=== PATIENT | female | born 1970 | race Caucasian/White ===

== ENCOUNTER 2017-11-23 14:30 | Inpatient (IN) | payer OTHER, SELFPAY ==
[2017-11-23 15:00] LABS: #Eosinphils 0.2 thou/uL (0.0-0.7); #Lymphocytes 1.7 thou/uL (1.20-3.40); #Monocytes 0.6 thou/uL (0.11-0.59); #Neutrophils 8.1 thou/uL (1.40-6.50); %Basophils 0.4 % (0.0-1.0); %Eosinophils 1.7 % (0.0-10.0); %Lymphocytes 15.6 % (21.0-51.0); %Monocytes 5.9 % (0.0-10.0); %Neutrophils 76.3 % (42.0-75.0); Hemoglobin 15.4 g/dL (12.0-16.0); Mean Corpuscular HGB CONC 34.9 g/dL (32.0-36.0); Mean Corpuscular Hemoglobin 31.8 pg (27.0-31.0); Mean Platelet Volume 6.8 fL (7.4-10.4); Platelet Count 316 thou/uL (130-400); Red Blood Cell (RBC) Count 4.83 mill/uL (4.20-5.40); White Blood Cell (WBC) Count 10.6 thou/uL (4.8-10.8)
[2017-11-23 15:23] LABS: ALT (SGPT) 11 U/L (8-55); AST (SGOT) 12 U/L (5-34); Albumin 4.3 g/dL (3.5-5.0); Alkaline Phosphatase 81 U/L (40-150); Anion Gap 13 mmol/L (10-20); BUN (Urea Nitrogen) 13 mg/dL (7.0-18.7); Bilirubin, Total 0.5 mg/dL (0.2-1.2); Calc. Creatinine Clearance 0 mL/min (70-130); Calcium 9.4 mg/dL (7.8-10.44); Carbon Dioxide 22 mmol/L (22-29); Chloride 106 mmol/L (98-107); Estimated GFR-MDRD 83; Globulin 3.2 g/dL (2.4-3.5); Glucose 110 mg/dL (70-105); Potassium 3.6 mmol/L (3.5-5.1); Protein, Total 7.5 g/dL (6.0-8.3); Sodium 137 mmol/L (136-145)
[2017-11-23 15:49] LABS: Bilirubin Negative (Negative); Blood, Urine Large (Negative); Clarity TURBID (Clear); Glucose, Urine (Dipstick) Negative (Negative); Leukocyte Large (Negative); Nitrite Positive (Negative); Protein, Urine (Dipstick) 100 mg/dL (Neg-Trace); Specific Gravity, Urine 1.018 (1.002-1.036); Urobilinogen 0.2 mg/dL (0.2-1.0); pH, Urine 5.5 (5.0-9.0)
[2017-11-23 15:51] LABS: Bacteria/HPF 4+ HPF (None Seen); Hyaline Casts/LPF 0-3 HYALINE CAST LPF (0-3 Hyaline); RBC/HPF GREATER THAN 50-TNTC HPF (0-3); Squamous Epithelial 0-3 HPF (0-3)
[2017-11-23 16:57] LABS: Pregnancy Test - Urine (BHCG) Negative (Negative); Pregu Control Background? CLEAR/WHITE (CLR/WHITE); Pregu Control Bar Appear? YES (CONTROL BAR); Specific Gravity 1.018 (1.002-1.036)
[2017-11-23] MEDS ORDERED: cefTRIAXone\\ROCEPHIN 1 GM VIAL ONE (17:18)
[2017-11-23] MEDS ORDERED: Morphine 4 MG/ML VIAL ONE (19:05)
[2017-11-23] MEDS ORDERED: Ketorolac Tromethamine 30 MG/ML VIAL ONE (19:06)
--- NOTE | 2017-11-23 19:39 | CT ---
CT ABDOMEN NONCONTRAST CT PELVIS NONCONTRAST: (urolithiasis protocol) DATE: 11/23/17 at 5:17 p.m. HISTORY: 47-year-old female with right flank pain. COMPARISON: 11/10/14. TECHNIQUE: IV injection of iodinated contrast media: none Oral contrast media: none FINDINGS: Other than for urolithiasis, the lack of IV and oral contrast limits the evaluation. 2 x 2.5 x 2.5 cm round left fatty adnexal mass at the pelvic inlet is unchanged since 11/10/14. No col onic diverticulitis. No appendicitis. No small bowel dilation. Within the limitations of a noncontras t scan, no major pathology identified involving the liver, spleen, abdominal aorta, adrenals, or panc reas. No hydroureter. No calculus in the urinary bladder or ureters. What were called dystrophic calc ifications were identified on the previous CT in the right kidney. Actually, those have moved, and th erefore they are more consistent with nephrolithiasis. Whereas cluster of calcifications were present in a right lower pole major calyx previously, this has apparently coalesced into what appears to be a single calculus which is now in the right renal pelvis but does not obstruct it. It measures approx imately 10 x 5.5 x 4 mm. There is mild dilation of the right renal pelvis and right calyces, new sinc e the previous CT. There are multiple tiny calculi 2 and 3 mm in size, in right renal upper, mid, and lower pole calyces. There is at least one 2 mm calculus at a left renal lower pole calyx, similar to previous CT. IMPRESSION: 1. Bilateral nephrolithiasis, with many more calculi in the right kidney than the left. 2. The largest calculus in the right kidney is 10 mm, and is in the right renal pelvis, although currently not lodged at the UPJ and therefore not causing a high grade obstruction. However, there i s mild right hydronephrosis, of uncertain etiology. 3. Left ovarian dermoid tumor is stable since 2014. ALEXA Beck POS: YANELIS
[2017-11-23] MEDS ORDERED: Ondansetron HCl/PF 4 MG/2 ML Vial IVP PRN (20:56)
[2017-11-23] MEDS ORDERED: Acetaminophen 325 MG TAB PO PRN (20:56)
[2017-11-23 22:31] VITALS: BMI 37.4
[2017-11-23] MEDS: Atorvastatin Calcium 40 MG TAB PO SCH (22:57)
[2017-11-23] MEDS: Metoprolol Tartrate 25 MG TAB PO SCH (22:57)
[2017-11-23] MEDS: Sodium Chloride 0.9% 1,000 ML IV SCH (23:12)
[2017-11-24 04:42] LABS: #Eosinphils 0.3 thou/uL (0.0-0.7); #Lymphocytes 1.8 thou/uL (1.20-3.40); #Monocytes 0.9 thou/uL (0.11-0.59); #Neutrophils 5.9 thou/uL (1.40-6.50); %Basophils 0.5 % (0.0-1.0); %Eosinophils 3.1 % (0.0-10.0); %Lymphocytes 20.5 % (21.0-51.0); %Monocytes 9.9 % (0.0-10.0); Hemoglobin 12.8 g/dL (12.0-16.0); Mean Corpuscular HGB CONC 34.6 g/dL (32.0-36.0); Mean Corpuscular Hemoglobin 31.8 pg (27.0-31.0); Mean Corpuscular Volume 91.9 fL (78.0-98.0); Mean Platelet Volume 7.3 fL (7.4-10.4); Platelet Count 282 thou/uL (130-400); Red Blood Cell (RBC) Count 4.01 mill/uL (4.20-5.40); White Blood Cell (WBC) Count 8.9 thou/uL (4.8-10.8)
[2017-11-24 05:16] LABS: Anion Gap 13 mmol/L (10-20); BUN (Urea Nitrogen) 18 mg/dL (7.0-18.7); Calc. Creatinine Clearance 155 mL/min (70-130); Calcium 8.4 mg/dL (7.8-10.44); Carbon Dioxide 19 mmol/L (22-29); Chloride 109 mmol/L (98-107); Estimated GFR-MDRD 89; Glucose 96 mg/dL (70-105); Sodium 137 mmol/L (136-145)
[2017-11-24] MEDS: Sodium Chloride 0.9% 1,000 ML IV SCH ×2 (06:17→08:31)
--- NOTE | 2017-11-24 06:24 | HP ---
PRIMARY CARE PHYSICIAN: The patient has no PCP. CODE STATUS: FULL CODE. TIME OF EVALUATION: 08:55 p.m. CHIEF COMPLAINT: Right flank pain. HISTORY OF PRESENT ILLNESS: This is a 47-year-old female patient with past medical history of multip le kidney stones in the past, status post surgery due to kidney stones, also has a history of reporte dly cardiac catheterization x2 with no stents, high cholesterol, came to the hospital after having se warren right-sided flank pain radiating to the anterior lower abdomen, with no clear triggers, no allev iating factors. No associated fever or chills. The patient did have some nausea and vomiting associ ated. REVIEW OF SYSTEMS: Constitutional: No fever, chills, or generalized weakness. Respiratory: No cou gh, sputum production or shortness of breath. Cardiovascular: No chest pain, palpitations, or short ness of breath. Gastrointestinal: The patient had nausea. No vomiting, diarrhea or abdominal pain. SALVAGE MECHANIC: No dizziness, headache or feeling lightheaded. Genitourinary: Right flank pain. Extremitie s: No leg swelling. All other systems were reviewed and negative except for the findings mentioned above. PAST MEDICAL HISTORY: Reported in the HPI. SOCIAL HISTORY: The patient smokes cigarettes, smoked for 20 years. PSYCHIATRIC HISTORY: No previous psychiatric history. PAST SURGICAL HISTORY: Kidney stones, has been removed in the past; cardiac catheterization x2; tons illectomy; tubal ligation. ALLERGIES: No known drug allergies. REPORTED MEDICATIONS: None. PHYSICAL EXAMINATION: VITAL SIGNS: Blood pressure 114/79 with heart rate 111, respiratory rate was 18, temperature 98.7, p ain was 10/10, oxygen saturation 98% on room air. GENERAL APPEARANCE: The patient is alert, oriented, not in any acute distress. HEENT: Eyes: Normal conjunctivae. Moist oral mucosa. Anicteric. NECK: No JVD. RESPIRATORY: Bilateral air entry. No rales, no wheezing. Symmetric expansion. CARDIOVASCULAR: Normal rate, regular rhythm. No murmurs, no gallop. No edema. ABDOMEN: Soft, normal bowel sounds. MUSCULOSKELETAL: Baseline range of motion and strength. No tenderness. SKIN: Warm and intact. No pallor, no rash, no redness. Peripheral pulses are present. Capillary re fill seems to be intact. NEUROLOGIC: Baseline sensory. No evidence of any new focal weakness. Baseline speech. Cranial ner ves seem to be intact. GENITOURINARY: The patient has right flank pain. PSYCHIATRIC: The patient is in good mood. No anxiety, oriented, optimal judgment. IMAGING: EKG was reviewed. The patient has normal sinus rhythm at the rate of 72, MN 160, QRS 76, Q T corrected 468, prolonged QT, nonspecific T-wave abnormalities. Abdomen and pelvis CT was reviewed. The patient has bilateral nephrolithiasis with minimal calculi in the right kidney other than left, the largest calculus in the right kidney is 10 mm right renal pelvis high-grade obstruct ion; however, there is mild hydronephrosis of uncertain etiology, left ovarian dermoid tumor is stabl e since 2015. LABORATORY DATA: Labs were reviewed. White count 10.6, hemoglobin 15.4, MCV 91, platelet count 316. Sodium 137, potassium 3.6, chloride 106, carbon dioxide 22, anion gap 13, BUN 13, creatinine 0.75, GFR 83, glucose 110. LFTs were negative. Urine was done. The patient has numerous rbc's and white blood counts. ASSESSMENT AND PLAN: The patient will be placed in the hospital with the following medical problems: 1. Urinary tract infection. The patient has been started on antibiotics. We will follow cultures, adjust antibiotics as per sensitivity. 2. Right flank pain, that is severe, needing pain medications for optimal control, this places the p atient at high risk of complication from treatment. 3. Multiple right kidney and left kidney calculi, Urology has been consulted, we will follow recomme ndations. There is mild hydronephrosis on the right side. 4. History of hyperlipidemia, low cholesterol diet is advised, reconcile home medications. 5. History of coronary artery disease, no previous stent, we will reconcile home medications. 6. Deep venous thrombosis prophylaxis.
[2017-11-24] MEDS: Metoprolol Tartrate 25 MG TAB PO SCH ×2 (07:20→20:34)
--- NOTE | 2017-11-24 10:40 | PDOC.FM ---
- Subjective Subjective: This morning patient states she is still having R CVA pain but it is well- controlled with PRN Morphine. She states she is still able to urinate, no blood in the urine, feels like she is not quite empty her bladder. She states she has some pressure when urinating. She has had stones 1 time before in about 2013 per her report. She denies chest pain, sob, headache, or leg pain. - Objective MAR Reviewed: Yes Vital Signs & Weight: Vital Signs (12 hours) Temp Pulse Resp BP BP Pulse Ox 11/24/17 07:15 98.0 F 62 16 129/75 97 11/24/17 03:46 97.5 F L 63 16 117/75 97 Weight Weight 98.883 kg I&O: 11/23/17 11/24/17 11/25/17 06:59 06:59 06:59 Intake Total 1500 Output Total 450 Balance 1050 Result Diagrams: 11/24/17 04:08 11/24/17 04:08 <Arvin Banegas - Last Filed: 11/24/17 10:44> - Objective Vital Signs & Weight: Vital Signs (12 hours) Temp Pulse Resp BP Pulse Ox 11/24/17 19:29 98.9 F 71 16 125/84 94 L 11/24/17 14:00 97.9 F 61 16 147/68 H 100 Weight Weight 98.883 kg I&O: 11/23/17 11/24/17 11/25/17 06:59 06:59 06:59 Intake Total 1500 2175 Output Total 450 600 Balance 1050 1575 Result Diagrams: 11/24/17 04:08 11/24/17 04:08 <Mariela Ya - Last Filed: 11/24/17 21:09> Phys Exam - Physical Examination Constitutional: NAD HEENT: PERRLA, moist MMs Neck: no nodes Respiratory: no wheezing, clear to auscultation bilateral Cardiovascular: RRR, no significant murmur Gastrointestinal: soft, non-tender, no distention, positive bowel sounds CVA tenderness on the right Musculoskeletal: no edema, pulses present Neurological: non-focal, moves all 4 limbs Lymphatic: no nodes Psychiatric: normal affect <Arvin Banegas - Last Filed: 11/24/17 10:44> Dx/Plan (1) Nephrolithiasis Status: Acute (2) History of coronary artery disease Code(s): Z86.79 - PERSONAL HISTORY OF OTHER DISEASES OF THE CIRCULATORY SYSTEM Status: Acute (3) Hyperlipidemia Code(s): E78.5 - HYPERLIPIDEMIA, UNSPECIFIED Status: Acute (4) Hypertension Code(s): I10 - ESSENTIAL (PRIMARY) HYPERTENSION Status: Acute - Plan Plan: # Hydronephrosis 2/2 Nephrolithiasis - Cytoscopy with Urology today, appreciate Urology recs - mild hydronephrosis on R, non-obstructed, multiple stone, largest 10mm - states she has had one stone in the past, 2013 - consider alpha-martha, will defer to uro recs - discussed increasing fluid intake upon d/c - anticipate thiazide on d/c - Morphine PRN for pain - serum calcium 8.4 # UTI - rocephin - urine culture grew gram (-) jonah, sensitivities pending # Dermoid ovarian tumor - stable since [address] # Hx of CAD - cath x2, no stends # HLD - atorvastatin # HTN - on metoprolol now - will discuss switch to HCTZ upon d/c as this can decrease risk of Calcium stones # Home meds - patient told admitting provider she had no home meds - unable to rec with patient this AM as she was taken for surgery, will f/u on this Code: full Fluids: NS Diet: NPO prior to surgery Dispo: 1-2 days <Arvin Banegas - Last Filed: 11/24/17 10:44> Attending Addendum - Attending Addendum Date/Time: 11/24/172107 I personally evaluated the patient at 1545 and discussed the management with Dr. Banegas I agree with the History, Examination, Assessment and Plan documented above with any addition or exceptions noted below. R nephrolithiasis with E coli UTI- ureteral stent placed by urology- appreciate recs. Continue IVF, pain meds, IV Rocephin. <Mariela Ya - Last Filed: 11/24/17 21:09>
[2017-11-24] MEDS ORDERED: Levofloxacin 500 mg/D5W 100 ml Premix Bag ONE (11:29)
[2017-11-24] MEDS ORDERED: Fentanyl 100 MCG/2 ML VIAL ONE ×2 (11:34→12:41)
[2017-11-24] MEDS ORDERED: Iothalamate Meglumine 60% 50 ML VIAL FS ONE (12:33)
[2017-11-24] MEDS ORDERED: Bisacodyl 10 MG SUPP PR PRN (13:18)
[2017-11-24] MEDS ORDERED: HYDROcodone/Acetaminophen 7.5/325 mg Tablet PO PRN (13:18)
[2017-11-24] MEDS ORDERED: Phenazopyridine HCl 97.5 MG TABLET PO PRN (13:21)
--- NOTE | 2017-11-24 13:35 | OP ---
PREOPERATIVE DIAGNOSES: 1. Right flank pain. 2. Gram-negative urinary tract infection. 3. Right renal pelvic stone 10 mm, multiple right punctate renal calculi, left punctate renal calcul i. 4. Mild right hydronephrosis. Left ovarian dermoid tumor, stable since [address] POSTOPERATIVE DIAGNOSES: 1. Right flank pain. 2. Gram-negative urinary tract infection. 3. Right renal pelvic stone 10 mm, multiple right punctate renal calculi, left punctate renal calcul i. 4. Mild right hydronephrosis. Left ovarian dermoid tumor, stable since [address] PROCEDURE PERFORMED: Cystoscopy, right 6 x 24 double-J ureteral stent placement. SURGEON: Luciana Archibald D.O. ANESTHESIA: LMA. COMPLICATIONS: None apparent. DISPOSITION: To recovery room in stable condition. INDICATIONS FOR PROCEDURE AND HISTORY: Ms. Jenkins is a 47-year-old morbidly obese female with history of ongoing tobacco abuse, coronary artery disease, with history of large renal pelvic stone, status post PCNL, staged ureteroscopy, laser lithotripsy in 2013. She has subsequently failed to follow up. She states that due to lack of insurance, unable to follow up with her physicians including a [facility] ologist. She continues to smoke. She presented to the emergency room due to right flank pain, UA de monstrates UTI, preliminary gram negative jonah. She has been on Rocephin, with no significant fever, no significant leukocytosis. Due to presenting mild hydronephrosis, large right renal pelvic stone, UTI, she presents for cystoscopy, right stent. Indications reviewed. Risks and complications includ ing bleeding, pain, infection, urosepsis was reviewed. She has been fully informed regarding staged treatment at a later date when UTI resolved. DESCRIPTION OF THE PROCEDURE: After an informed consent is signed, the patient is taken to the opera tin room, placed in a dorsal lithotomy position with the genital area prepped and draped in the usua l surgical sterile fashion. Broad-spectrum antibiotics were provided. A 21 Vincentian cystoscope was ut ilized for cystoscopy. Upon entering the bladder, there was no bladder stone seen. The right UO was intubated with an open-ended catheter and a 0.35 sensor wire was passed into the right upper pole wi thout difficulty. Radiopaque stone was seen on fluoroscopy. A 6 x 24 double-J ureteral stent was pa ssed without difficulty. Distal tail was left in situ. Bladder was completely emptied and she jenn ated the procedure well. She was transported to the recovery room and will be monitored until urine culture finalizes. It would be prudent to obtain Cardiology evaluation, as she has not seen a cardio logist for 3-4 years and has history of coronary artery disease, noncompliant with her cardiac medica tion. Her blood pressure on this admission is stable. Anticipate discharge when urine culture final ized with appropriate antibiotic regimen.
--- NOTE | 2017-11-24 14:09 | CON ---
DATE OF CONSULTATION: 11/24/2017 REASON FOR CONSULT: Right renal calculi, UTI. PRIMARY CARE PHYSICIAN: Jennifer Brock M.D. HISTORY OF PRESENT ILLNESS: Ms. Jenkins is a 47-year-old female last seen 2014. She presented for treatment of her large right renal pelvic stone, in which prior CT in 10/2012 demonstrated a 2.4cm x 11 mm stone with Hounsfield unit 1100 , and a second stone in the lower pole of the right kidney, 8-9 mm. She does have a history of left lower pole punctate renal lithiasis. Incidentally on the CT scan is a history of left ovarian dermoid. She underwent staged percutaneous nephrolithotomy, ureteroscopy back in 07/2013. Subsequent CT demonstrated residual stone nidus extrarenal on observation, and also a linear calcific density 9mm in the right kidney which appeared to be embedded on URS was on surveillance. I did inform the patient regarding importance of subsequent followup and surveillance; however, she had failed to follow up. She relates that she since I have seen her has ran out of insurance, has not been taking her blood pressure medication as well. She does relate history of aspirin use. She presented to the emergency room due to flank pain which began on Sunday. Urinalysis is suspicious for UTI currently, preliminary urine culture demonstrating gram negative jonah. She is hemodynamically stable and denies fever, chills, nausea, vomiting. CT demonstrates right renal pelvic stone now within the collecting system, also there are punctate right kidney stones approximately 3 in number and left punctate renal lithiasis. Advised regarding cystoscopy, right stent and elective treatment of her right renal pelvic stone at a later date. She desires to proceed. The patient is informed that she has not seen a revit drafter for few years. She continues to smoke. PAST MEDICAL HISTORY: Include hypertension, coronary artery disease, previous cardiac clearance by Dr. Perez in 05/2013. PAST SURGICAL HISTORY: T&A, tubal ligation, cardiac catheterization in 01/2012 demonstrating mild to moderate coronary artery disease on medical management. 06/23/2013, right percutaneous nephrolithotomy, laser lithotripsy of right renal pelvic stone, catheterization of the right ureter. 06/27/2013, cystoscopy, right retrograde 6 x 24 stent and nephrostomy tube removal. 08/04/2013, cystoscopy, bilateral retrograde, right ureteroscopy, pyeloscopy, basket extraction of right distal ureteral calculi x3 laser lithotripsy of right mid pole and lower pole renal calculi, extraction of stone. ALLERGIES: CEPHALEXIN. No prior allergic history per our clinical notes Currently, she is on Rocephin, which she is tolerating uneventfully. The patient currently present with her . PHYSICAL EXAMINATION: VITAL SIGNS: Stable 97, 129/75, 450 of urine output. GENERAL: The patient appears to be in no acute distress. Denies chest pain, shortness of breath. No nausea, vomiting or fever. HEENT: Grossly unremarkable. HEART: Regular rate. LUNGS: Clear. ABDOMEN: Morbidly obese, protuberant, no rigidity, no rebound. EXTREMITIES: No cyanosis, clubbing or edema. GENITOURINARY: Deferred at this time as that we performed a cystoscopy this morning. PERTINENT LABS AND IMAGING: She presented with a white count of 10. Currently , this morning is 8.9, hemoglobin 12, platelet 282. Creatinine stable at 0.7, calcium within normal limits. Urinalysis demonstrates 100 protein, large leukocytes, positive nitrites, 4+ bacteria, no epithelials, greater than 50 WBCs , RBCs. Urine culture preliminary growing gram negative jonah. CT demonstrates a right 9-10 mm stone in the renal pelvis, right punctate renal lithiasis x3, left lower pole punctate renal lithiasis. IMPRESSION AND PLAN: 1. Ms. Jenkins is a 47-year-old female with history of coronary artery disease with recurrent kidney stones, prior history of right PCNL stage ureteroscopy, laser lithotripsy presents with urinary tract infection, right renal pelvic stone, recommend cystoscopy, stent placement. 2. Noncompliance due to lack of insurance. 3. History of coronary artery disease followed by Dr. Peerz. 4. Tobacco abuse with history of cardiac catheterization 10/16/2017 with normal EF. 5. History of intermittent chest pain. We will proceed with cystoscopy stent. EKG, chest x-rays to be obtained. Cardiology consultation advised as she will need to return to the OR for ureteroscopy, laser lithotripsy, possible staged intervention given stone size. 6. Await urine culture. [facility]
[2017-11-24] MEDS: Oxybutynin 5 MG TAB PO PRN (14:16)
--- NOTE | 2017-11-24 14:48 | RAD ---
IVP RETROGRADE EVALUATION; Date: 11/24/17 INDICATION: Stent placement. COMPARISON: CT of abdomen and pelvis dated 11/23/17. FINDINGS: Submitted images demonstrate placement of a right ureteral stent. Large calculus within the right mir al pelvis is unchanged in position from the comparison CT. IMPRESSION: Interval placement of right ureteral stent. The stent projects in the expected position. POS: SAM
[2017-11-24] MEDS ORDERED: Dexamethasone 20 MG/5 ML VIAL ONE (15:02)
[2017-11-24] MEDS ORDERED: Succinylcholine Chloride 20 MG/ML 10 ml SYRINGE FS ONE (15:02)
[2017-11-24] MEDS ORDERED: Ondansetron HCl/PF 4 MG/2 ML Vial ONE (15:02)
[2017-11-24] MEDS ORDERED: Lidocaine 1% PF 5 ML VIAL ONE (15:02)
[2017-11-24] MEDS ORDERED: PROPOFOL 200 MG/20 ML VIAL ONE (15:02)
[2017-11-24] MEDS: HYDROcodone/Acetaminophen 7.5/325 mg Tablet PO PRN ×2 (16:14→20:34)
[2017-11-24] MEDS: Docusate 100 MG CAP PO PRN (20:33)
[2017-11-24] MEDS: Atorvastatin Calcium 40 MG TAB PO SCH (20:34)
[2017-11-24] MEDS ORDERED: Docusate 100 MG CAP PO SCH (21:00)
[2017-11-24] MEDS ORDERED: cefTRIAXone\\ROCEPHIN 1 GM in Sodium Chloride 0.9% 100 ML IVPB SCH (21:00)
[2017-11-25] MEDS: Sodium Chloride 0.9% 1,000 ML IV SCH (04:55)
[2017-11-25] MEDS: Oxybutynin 5 MG TAB PO PRN (06:30)
--- NOTE | 2017-11-25 07:30 | PDOC.FM ---
Addendum entered and electronically signed by Arvin Banegas MD 11/25/17 07:36: Dispo: likely d/c today pending pain control, cardiology recs EKG ordered Original Note: - Subjective Subjective: This morning patient states she is feeling well overall. She states her pain is controlled as long as she keeps on top of asking for norco. She was able to eat and drink last night without difficulty. Still having some urinary hesitation. No pressure, burning, or blood with urination. - Objective MAR Reviewed: Yes Vital Signs & Weight: Vital Signs (12 hours) Temp Pulse Resp BP Pulse Ox 11/25/17 04:00 97.8 F 52 L 17 115/77 97 11/25/17 00:11 97.6 F 62 18 110/76 96 11/24/17 20:34 98.9 F 71 16 Weight Weight 98.883 kg I&O: 11/24/17 11/25/17 11/26/17 06:59 06:59 06:59 Intake Total 1500 2175 Output Total 450 600 Balance 1050 1575 Result Diagrams: 11/24/17 04:08 11/24/17 04:08 <Arvin Banegas - Last Filed: 11/25/17 07:29> - Objective Vital Signs & Weight: Vital Signs (12 hours) Temp Pulse Resp BP Pulse Ox 11/25/17 08:35 98.7 F 54 L 16 96 11/25/17 07:59 98.7 F 54 L 16 152/92 H 96 11/25/17 04:00 97.8 F 52 L 17 115/77 97 11/25/17 00:11 97.6 F 62 18 110/76 96 Weight Weight 98.883 kg I&O: 11/24/17 11/25/17 11/26/17 06:59 06:59 06:59 Intake Total 1500 2175 Output Total 450 600 Balance 1050 1575 Result Diagrams: 11/24/17 04:08 11/24/17 04:08 <Mariela Ya - Last Filed: 11/25/17 11:33> Phys Exam - Physical Examination Constitutional: NAD HEENT: PERRLA, moist MMs Neck: no nodes Respiratory: no wheezing, clear to auscultation bilateral Cardiovascular: RRR, no significant murmur Gastrointestinal: soft, non-tender, no distention, positive bowel sounds CVA tenderness on R, mild, improved from yesterday Musculoskeletal: no edema, pulses present Neurological: non-focal, moves all 4 limbs Psychiatric: normal affect Skin: no rash, cap refill <2 seconds <Arvin Banegas - Last Filed: 11/25/17 07:29> Dx/Plan (1) Nephrolithiasis Status: Acute (2) History of coronary artery disease Code(s): Z86.79 - PERSONAL HISTORY OF OTHER DISEASES OF THE CIRCULATORY SYSTEM Status: Acute (3) Hyperlipidemia Code(s): E78.5 - HYPERLIPIDEMIA, UNSPECIFIED Status: Acute (4) Hypertension Code(s): I10 - ESSENTIAL (PRIMARY) HYPERTENSION Status: Acute - Plan Plan: # Hydronephrosis 2/2 Nephrolithiasis - Cytoscopy w/ stent placement 11/24 - mild hydronephrosis on R, non-obstructed, multiple stone, largest 10mm - states she has had one stone in the past, 2013 - thiazide to be continued on d/c - Morphine PRN for pain - serum calcium 8.4 # UTI - hirsch-sensitive e. coli # Dermoid ovarian tumor - stable since [address] # Hx of CAD - cath x2, no stents # HLD - atorvastatin # HTN - on metoprolol now, held 2/2 bradycardia - HCTZ # Bradycardia - bradycardic in 50s this AM, not symptomatic - hold metoprolol # No insurance - discussed financial assistance program [facility] physicians - patient should qualify to be seen w/o charge - case mgmt consulted Code: full Fluids: NS Diet: NPO prior to surgery Dispo: 1-2 days <Arvin Baneags - Last Filed: 11/25/17 07:29> Attending Addendum - Attending Addendum Date/Time: 11/25/17 1128 I personally evaluated the patient at 1015 am and discussed the management with Dr. Banegas I agree with the History, Examination, Assessment and Plan documented above with any addition or exceptions noted below. E coli UTI and R nephrolithiasis s/p R ureteral stent placement. patient is stable for d/c home on po amoxicillin and f/u with urology as outpatient. Will get outpatient cardiac clearance. <Mariela Ya - Last Filed: 11/25/17 11:33>
[2017-11-25] MEDS: Docusate 100 MG CAP PO PRN (08:36)
[2017-11-25] MEDS ORDERED: Hydrochlorothiazide 25 MG TAB PO SCH (09:00)
[2017-11-25] MEDS ORDERED: Ibuprofen 800 MG TAB PO PRN (11:40)
--- NOTE | 2017-11-25 11:40 | PDOC.EVN ---
Event Note - Event Note Event Note: Patient is Category IIb per 2014 AHA cardiovascular perioperative risk calculator Non-emergent surgery No active acute coronary syndrome -referred to cardiology for outpatient evaluation, has had 2 caths with no stents in the past 4-10 METs Category IIb, proceed with intermediate-high risk surgery per 2014 AHA cardiovascular perioperative risk calculator.
[2017-11-25] MEDS ORDERED: HYDROcodone/Acetaminophen 7.5/325 mg Tablet PO PRN (12:07)
[2017-11-25 12:16] VITALS: BP 141/80; TEMP 97.9
[2017-11-25] MEDS ORDERED: HYDROcodone/Acetaminophen 5/325 mg Tablet PO PRN ×2 (12:42)
--- NOTE | 2017-11-25 13:37 | PRG ---
DATE OF SERVICE: 11/25/2017 SUBJECTIVE: The patient feeling okay, Hauula was discontinued by primary service; previously, her susie n was adequately controlled with Hauula p.r.n. Denies nausea, vomiting, or fever. OBJECTIVE: VITAL SIGNS: Stable. She is afebrile. ABDOMEN: Soft, nontender, nondistended. No CVA tenderness appreciated. LABORATORY DATA: No recent labs. Her urine culture did finalize demonstrating E. coli resistant to quinolones, sensitive to cephalosporins, Bactrim, and Macrobid. IMPRESSION AND PLAN: Ms. Jenkins is a 47-year-old female with history of tobacco abuse, coronary arter y disease, history of recurrent kidney stone, prior history of large right renal pelvic stone, status post stage PCNL, ureteroscopy. 1. Current admission due to progression of previous surveyed renal pelvic stone, now measuring 10 mm with multiple right punctate renal lithiasis. Postoperative day #1, status post cystoscopy, right s tent. She is clinically stable to be discharged. I have provided her with Bactrim DS 1 p.o. b.i.d. for 14 days, Hauula 5/325 one to two p.o. q.6-8 hours p.r.n. #40, Colace, Azo, oxybutynin 5 mg 1 p.o. q.8 hours bladder spasm. She has a close followup with me this Sunday to undergo preoperative sched uling. We will obtain a recheck urinalysis and culture in a week to 2 intervals. When urine culture negative, we will proceed with surgical intervention, most likely right ureteroscopy, laser lithotri psy. She has been fully informed regarding likely of her stage and intervention given stone size, mo iety. She would prefer outpatient surgery versus PCNL. As the stone measures 10 mm, I am okay to pr oceed with ureteroscopy and is likely stage manner. 2. History of coronary artery disease with medical noncompliance due to lack of insurance. I did we nt by her case with Dr. Freire this morning. He will write a separate cardiac clearance to proceed w ith surgical intervention in about 2 weeks, as the patient will require general anesthesia for approx imately 2-hour interval given the size of the stone. Verbally, per Dr. Freire, she will most likely be cleared to be off her aspirin. Prescription is in chart. The patient to be discharged after her Cardiology consultation.
--- NOTE | 2017-11-25 15:47 | CON ---
DATE OF CONSULTATION: 11/25/2017 REASON FOR CONSULTATION: Preoperative evaluation. PRIMARY LITHOPRESS OPERATOR: Girma Perez M.D. HISTORY OF PRESENT ILLNESS: Ms. Jenkins is a very pleasant 47-year-old white female who comes to the [facility] for a urethral stone. She was seen by Dr. Archibald and eventually had a stent placed and I am being called to do a preoperative evaluation for removal of the stent 2 weeks from now. She has been on full dose aspirin 325. She has had a history of multiple admissions for chest pain to the [facility]. She has had negative stress in the past back in 2013. She had a heart catheterization for continued episodes of chest pain despite having a normal stress test, so she was found to have no sig nificant coronary artery disease. Her EF was normal at that time. She was recommended to stop tobac co and was started on a baby aspirin and she is taking fish oil at home as well. She denies any chest pain, tightness, or pressure. PAST MEDICAL HISTORY: 1. Multiple kidney stones in the past. 2. Hyperlipidemia. 3. Chronic chest pain, but no significant coronary artery disease. SOCIAL HISTORY: He continues to smoke. No alcohol, drug use. PAST SURGICAL HISTORY: 1. Kidney stone removal in the past. 2. Cardiac catheterization as above. 3. Tonsillectomy. 4. Tubal ligation. OUTPATIENT MEDICATIONS: None. ALLERGIES: No known drug allergies. REVIEW OF SYSTEMS: Twelve point review of systems was done and is all negative unless stated in the history of present illness. FAMILY HISTORY: Noncontributory. PHYSICAL EXAMINATION: VITAL SIGNS: Temperature 97.9, pulse 54, respiration rate 12, satting 96% on room air, blood pressur e 141/80. GENERAL: Awake, alert, oriented x3, in no distress. HEENT: Normocephalic, atraumatic. NECK: Supple. LUNGS: Clear. CARDIOVASCULAR: S1, S2, no S3, S4, no murmurs. ABDOMEN: Soft, positive bowel sounds. EXTREMITIES: No edema. SKIN: Warm and dry. LABORATORY WORK: Reviewed. CBC, chemistry and UA were reviewed. Urine test was negative. ASSESSMENT: 1. Preoperative evaluation. 2. Chronic chest pain, none recently with a normal catheterization in the past. PLAN: 1. She is low risk for a low to intermediate risk procedure. He may proceed with this procedure aaron yancey understood . She may stop her aspirin completely before the surgery and then restart whenever it is safe from the surgical perspective. No further testing is required before surgery. 2. Advised on tobacco cessation. 3. Follow up with Dr. Perez in the clinic in 1-2 months. Thank you for letting us participate in the care of your patient. We will sign off. Please call aaron yancey any questions.
--- NOTE | 2017-11-26 10:40 | DIS-2 ---
DATE OF ADMISSION: 11/23/2017 DATE OF DISCHARGE: 11/26/2017 RESIDENT: Dr. Arvin Banegas. ADMITTING ATTENDING: Ezra Lopes M.D. DISCHARGE ATTENDING: Dr. Mariela Ya. CONSULTATIONS: Urology and Cardiology. PROCEDURES: Cystoscopy with urethral stent. PRIMARY DIAGNOSIS: Nephrolithiasis. SECONDARY DIAGNOSES: Hydronephrosis, urinary tract infection, dermoid ovarian tumor, history of almaz nary artery disease, hyperlipidemia, hypertension, cardiovascular perioperative evaluation. DISCHARGE MEDICATIONS: Atorvastatin 80, hydrochlorothiazide 25, ibuprofen 800, oxybutynin 5, hydroco done, Bactrim b.i.d., Azo, aspirin. DISCONTINUED MEDICATIONS: None. HISTORY OF PRESENT ILLNESS AND HOSPITAL COURSE: This is a 47-year-old female, who presented to the [facility], [place] with a past medical history of kidney stones in the past. She had severe right-sided flank pain ra diating to lower abdomen. No associated fever or chills. Patient did have nausea and vomiting. Thi s is going on for about one day prior to admission. The patient had CT abdomen and pelvis, which showed stable dermoid ovarian tumor from 2014. CT also showed multiple renal-pelvic stones, largest being 10 mm on the right side with mild hydronephrosis o n the right side. She had a cystoscopy with right-sided stent placement. She will have followup wit clinic in Neurology on 11/27. Urinalysis and culture will be rechecked in 2 weeks. When urine cul ture is negative, they will have a right ureteroscopy and laser lithotripsy. Because of her history of coronary artery disease with medical noncompliance due to lack of insurance, Dr. Freire was consul rafa for perioperative evaluation. She was cleared for this [id number] risk surgery by [facility]. She may stop her aspirin before the surgery and restart when it is safe from a surgical persp ective. DISPOSITION: Stable. DISCHARGE INSTRUCTIONS: 1. Location: Home. 2. Diet: Regular. 3. Activity: As tolerated. 4. Followup: With Dr. Archibald in clinic on 11/27, Dr. Perez in 7 days as able, Dr. Brock in 7 days. 5. Encouraged the patient to increase fluid intake.
--- NOTE | 2017-11-26 10:49 | EKG ---
Test Reason : Blood Pressure : / mmHG Vent. Rate : 041 BPM Atrial Rate : 041 BPM P-R Int : 144 ms QRS Dur : 082 ms QT Int : 494 ms P-R-T Axes : 022 025 -04 degrees QTc Int : 407 ms Marked sinus bradycardia Abnormal ECG When compared with ECG of 11-AUG-2016 03:21, Vent. rate has decreased BY [address] no longer depressed in Anterior leads T wave inversion less evident in Inferior leads T wave inversion no longer evident in Anterolateral leads QT has shortened Confirmed by DR. Marion DE SANTIAGO ([id number]), television news video editor [address]MAN[address] ([id number]) on 11/26/2017 10:49:14 AM Referred By: JOHN Confirmed By:DR. Marion D ESANTIAGO
== END 2017-11-25 14:01 | disposition home or self-care (01) | DRG 694 ==
LOC: ERS 14:30 → SURG B 20:00
PROVIDERS: ADMIT Hospitalist; ATTEND Hospitalist
PROC: 0T768DZ Dilation of Right Ureter with Intraluminal Device, Via Natural or Artificial Opening Endoscopic (ICD-10-PCS; principal; 2017-11-24)
PROC: BT1D1ZZ Fluoroscopy of Right Kidney, Ureter and Bladder using Low Osmolar Contrast (ICD-10-PCS; 2017-11-24)
DX: N13.2 Hydronephrosis with renal and ureteral calculous obstruction (principal); N39.0 Urinary tract infection, site not specified; E78.5 Hyperlipidemia, unspecified; I25.10 Atherosclerotic heart disease of native coronary artery without angina pectoris; Z91.14 Patient's other noncompliance with medication regimen; B96.89 Other specified bacterial agents as the cause of diseases classified elsewhere
CPT/HCPCS: 36415; 36416; 74176; 74420; 80048; 80053; 81003; 81015; 81025; 85025; 87077; 87086; 87186; 93005; 93010; 96361; 96365; 96367; 96375; C1758; C1769; J0696; J1100; J1885; J1956; J2001; J2270; J2405; J2704; J3010; J7050; Q9961

== ENCOUNTER 2017-12-12 06:09 | Day surgery (SDC) | payer SELFPAY ==
[2017-11-29 15:00] VITALS: BMI 37.8
[2017-12-12] MEDS ORDERED: Piperacillin/Tazobactam 3.375 GM in Sodium Chloride 0.9% 100 ML IVPB SCH (06:45)
[2017-12-12] MEDS ORDERED: Iothalamate Meglumine 60% 50 ML VIAL FS ONE (07:07)
[2017-12-12] MEDS ORDERED: Fentanyl 100 MCG/2 ML VIAL ONE ×2 (07:23→09:14)
[2017-12-12] MEDS ORDERED: Midazolam HCl 2 mg/2 ml Vial ONE (07:23)
--- NOTE | 2017-12-12 08:30 | RAD ---
ONE VIEW ABDOMEN: COMPARISON: 01/04/2015 FINDINGS: There is a double-J right ureteral stent. Positioning appears to be appropriate. There is a 1 cm ca lcification projecting along the proximal right ureteral stent. Nonspecific bowel gas pattern. Phle boliths in the left hemipelvis are noted. IMPRESSION: A 1 cm calculus along the proximal right ureteral stent. POS: [facility]ANELIS
[2017-12-12] MEDS ORDERED: SUGAMMADEX SODIUM 200 MG/2 ML VIAL ONE (08:51)
[2017-12-12] MEDS ORDERED: Promethazine HCl 25 MG/ML VIAL ONE ×2 (09:00→09:57)
[2017-12-12] MEDS ORDERED: PHENYLEPHRINE-NS 100 MCG/ML 10 ML SYRINGE ONE (09:12)
[2017-12-12] MEDS ORDERED: PROPOFOL 200 MG/20 ML VIAL ONE (09:12)
[2017-12-12] MEDS ORDERED: Lidocaine 1% PF 5 ML VIAL ONE (09:12)
[2017-12-12] MEDS ORDERED: Ondansetron HCl/PF 4 MG/2 ML Vial ONE (09:12)
[2017-12-12] MEDS ORDERED: Glycopyrrolate 0.2 MG/ML 5 ML SYRINGE ONE (09:12)
[2017-12-12] MEDS ORDERED: ePHEDrine/0.9% NaCl/PF SYRINGE 50 mg/10 ml ONE (09:12)
[2017-12-12] MEDS ORDERED: Oxybutynin 5 MG TAB ONE (09:17)
[2017-12-12] MEDS ORDERED: Phenazopyridine HCl 97.5 MG TABLET ONE ×2 (09:18)
[2017-12-12] MEDS ORDERED: Morphine 4 MG/ML VIAL ONE (09:57)
--- NOTE | 2017-12-12 10:14 | RAD ---
RETROGRADE IVP: HISTORY: A 47-year-old female with a history of ureteral stents. COMPARISON: 11/24/2017 FINDINGS: A single portable AP image of the abdomen demonstrates a right ureteral stent in place. The previous ly noted right renal calculi are no longer evident. IMPRESSION: 1. Right ureteral stent in place. 2. No overt ureteral or upper renal collecting system calculus. POS: [facility]
[2017-12-12] MEDS ORDERED: HYDROcodone/Acetaminophen 5/325 mg Tablet ONE (10:18)
--- NOTE | 2017-12-12 10:43 | OP ---
DATE OF PROCEDURE: 12/12/2017 PREOPERATIVE DIAGNOSES: 1. A 47-year-old female with history of recurrent kidney stone. 2. History of right renal pelvic stone measuring 10 mm, right punctate renal lithiasis, left lower pole punctate renal lithiasis, status post right stent. 3. History of urinary tract infection, treated and resolved. POSTOPERATIVE DIAGNOSES: 1. A 47-year-old female with history of recurrent kidney stone. 2. History of right renal pelvic stone measuring 10 mm, right punctate renal lithiasis, left lower pole punctate renal lithiasis, status post right stent. 3. History of urinary tract infection, treated and resolved. PROCEDURE: Cystoscopy, right retrograde, 6 x 26 double-J ureteral stent exchange, flexible ureteroscopy, pyeloscopy, laser lithotripsy of renal pelvic stone, basket extraction of stone fragments. SURGEON: Luciana Archibald D.O. ANESTHESIA: General. COMPLICATIONS: None apparent. SPECIMEN: Stone for chemical analysis. INDICATIONS FOR THE PROCEDURE AND HISTORY: Ms. Jenkins is a 47-year-old female with history of recurrent kidney stone. She previously underwent right percutaneous nephrolithotomy staged ureteroscopy as she had a large renal pelvic stone more than 2 cm. She has subsequently been lost to follow up. She presented with a right 10 mm renal pelvic stone with urinary tract infection. She underwent stent placement, UTI has been treated and resolved and she presents today for ureteroscopy, laser lithotripsy. She was offered alternative options including PCNL, ESWL versus ureteroscopy, laser lithotripsy and desired to proceed with ureteroscopy, laser lithotripsy. Given stone size, I did not recommend right PCNL. Risks and complications of the procedure was reviewed with her in detail including, but not limited to, bleeding, pain, infection, injury to adjacent organs, urosepsis, ureteral renal injury, stricture formation questions answered to her satisfaction, she desired to proceed. DESCRIPTION OF THE PROCEDURE: After an informed consent is signed, the patient is taken to the operating room, placed in a dorsal lithotomy position with the genital area prepped and draped in usual surgical sterile fashion. A 21-Japanese cystoscope was utilized. She did receive broad spectrum antibiotics, Zosyn, bilateral ELIAS hose and SCDs were placed. A scope was placed and the previously placed ureteral stent migrated into the intramural ureter; however, as I leave a stent with dangler in situ, I was able to retrieve this uneventfully as the dangler nidus was exiting the UO. The stent was removed to the level of the meatus and a 0.35 sensor wire was placed into the right upper pole. A 10 Japanese dual-lumen access sheath was able to be passed without difficulty to the proximal ureter. We opacified the collecting system demonstrating proper placement. A second safety wire, 0.35 Super Stiff wire was then placed. With the dual lumen access sheath then subsequently removed, we passed a 13/15 Japanese x 36 cm navigator without difficulty as she had passively dilated the ureter with the stent to the level of the proximal ureter with ease. Flexible ureteroscope was then advanced and the working wire removed. We surveyed the stone which was in the renal pelvis. I did push the stone to the right upper pole. Using 365 micron laser fiber, we used a dust setting to dust the stone into multiple fragments. Some of the stone migrated into the mid pole. Using a 0 tip nitinol basket, we basket extracted all those that were amendable to be basket extracted with 0 tip nitinol basket. At the end of the procedure, what remained was dust-like stone debris which did not warrant basket extraction. The ureter was then surveyed, demonstrating no evidence of ureteral mucosa trauma. No stone nidus was seen in the ureter. A 6 x 26 double-J ureteral stent was passed without any issues. Proper placement was confirmed on fluoroscopy with good coil in the bladder and in the renal pelvis. The bladder was completely emptied and she tolerated the procedure well. She will follow up with me next week with KUB 1 hour prior to the appointment. If there is no obvious stone debris of concern, she will undergo local cystoscopy stent pull. She is discharged with Omnicef 300 mg for a course of 7 days and off until followup appointment, Colace b.i.d., Hardwick 5/325, #30, Pyridium, Ditropan 5 mg 1 p.o. q.8 hours p.r.n. for bladder spasm. ZELALEM
[2017-12-17 17:11] LABS: CA Oxalate Dihydrate 25 % (.); CA Oxalate Monohydrate 55 % (.); CA Phosphate 20 % (.); Color Tan (.); Stone Weight 67.6 mg (.)
== END 2017-12-12 11:45 | disposition home or self-care (01) ==
LOC: SDC 06:09
PROVIDERS: ATTEND Urology
PROC: 0T768DZ Dilation of Right Ureter with Intraluminal Device, Via Natural or Artificial Opening Endoscopic (ICD-10-PCS; principal; 2017-12-12)
PROC: 0TF38ZZ Fragmentation in Right Kidney Pelvis, Via Natural or Artificial Opening Endoscopic (ICD-10-PCS; principal; 2017-12-12)
DX: N20.0 Calculus of kidney (principal); I10 Essential (primary) hypertension; I25.10 Atherosclerotic heart disease of native coronary artery without angina pectoris; E21.3 Hyperparathyroidism, unspecified; Z79.899 Other long term (current) drug therapy
CPT/HCPCS: 74018; 74420; 82365; 88300; 96374; 96375; 96376; C1758; C1769; J2001; J2250; J2270; J2405; J2543; J2550; J2704; J3010; J7050; Q9961

== ENCOUNTER 2017-12-20 07:30 | Outpatient (CLI) | payer SELFPAY ==
--- NOTE | 2017-12-20 09:43 | RAD ---
KUB: DATE: 12/20/17. PROVIDED CLINICAL HISTORY: Ureteral calculus. FINDINGS: Comparison 12/12/17. Right ureteral stent is again seen in similar position. Previously described ri ght ureteral calculus no longer visualized. Phleboliths gain overlie the left hemipelvis. Conspicuo us colonic fecal retention is again noted. The abdominal bowel gas pattern is nonspecific. The osse ous structures appear unremarkable. IMPRESSION: Right ureteral stent redemonstrated. Previously described right ureteral calculus is no longer evide nt. POS: YANELIS
== END 2017-12-20 07:31 | disposition home or self-care (01) ==
LOC: RAD 07:30
PROVIDERS: ATTEND Family Medicine
DX: N20.0 Calculus of kidney (principal); Z96.0 Presence of urogenital implants
CPT/HCPCS: 74018

== ENCOUNTER 2020-01-13 18:22 | Inpatient (IN) | payer OTHER, SELFPAY ==
[~2020-01-13 18:22] MED LIST: Iopamidol 370 76% 100 ML VIAL ONE
--- NOTE | 2020-01-13 18:55 | RAD ---
Chest AP view INDICATION: Chest tightness COMPARISON: December 02, 2014 chest radiograph and August 11, 2016 chest radiograph FINDINGS: Lungs: There is areas of subsegmental volume loss involving the right midlung and right lower lobe. No confluent airspace opacity is evident. Cardiac silhouette: The cardiomediastinal silhouette appears within normal limits. Pulmonary vasculature: Normal Pleural spaces: No pleural effusion or pneumothorax is demonstrated. Upper abdomen: No abnormality seen. Osseous structures: No acute osseous abnormality. Additional findings: None. IMPRESSION: Subsegmental volume loss within the right midlung and right lower lobe. No additional acute abnormali ty.
[2020-01-13 18:56] LABS: #Basophils 0.1 thou/uL (0.0-0.2); #Eosinphils 0.2 thou/uL (0.0-0.7); #Lymphocytes 1.5 thou/uL (1.20-3.40); #Monocytes 0.9 thou/uL (0.11-0.59); #Neutrophils 8.4 thou/uL (1.40-6.50); %Basophils 0.8 % (0.0-1.0); %Eosinophils 2.2 % (0.0-10.0); %Lymphocytes 13.3 % (21.0-51.0); %Monocytes 8.1 % (0.0-10.0); %Neutrophils 75.6 % (42.0-75.0); Hemoglobin 14.5 g/dL (12.0-16.0); Mean Corpuscular HGB CONC 34.3 g/dL (32.0-36.0); Mean Corpuscular Hemoglobin 31.8 pg (27.0-31.0); Mean Corpuscular Volume 92.5 fL (78.0-98.0); Mean Platelet Volume 7.4 fL (7.4-10.4); Platelet Count 302 thou/uL (130-400); Red Blood Cell (RBC) Count 4.55 mill/uL (4.20-5.40); White Blood Cell (WBC) Count 11.1 thou/uL (4.8-10.8)
[2020-01-13 19:18] LABS: ALT (SGPT) 14 U/L (8-55); AST (SGOT) 14 U/L (5-34); Albumin 4.2 g/dL (3.5-5.0); Alkaline Phosphatase 87 U/L (40-110); Anion Gap 11 mmol/L (10-20); BUN (Urea Nitrogen) 13 mg/dL (7.0-18.7); Bilirubin, Total 0.3 mg/dL (0.2-1.2); CK (CPK) 72 U/L (29-168); Calc. Creatinine Clearance 0 mL/min (70-130); Calcium 9.5 mg/dL (7.8-10.44); Carbon Dioxide 25 mmol/L (22-29); Chloride 104 mmol/L (98-107); Estimated GFR-MDRD 81; Globulin 3.2 g/dL (2.4-3.5); Glucose 99 mg/dL (70-105); Potassium 3.9 mmol/L (3.5-5.1); Protein, Total 7.4 g/dL (6.0-8.3); Sodium 136 mmol/L (136-145)
[2020-01-13] MEDS ORDERED: Nitroglycerin 2% Ointment 1 INCH/1 GM Packet ONE (19:29)
--- NOTE | 2020-01-13 19:49 | CT ---
CTA Angio Chest W WO Con 01/13/2020 7:25 PM Indication: 49-year-old female with shortness of breath and elevated d-dimer Technique: Multiple CTA images were obtained of the thorax with IV contrast. 3-D rendering: MIP milvia nstructed images were created and reviewed. Comparison: No relevant prior studies available. Findings: Pulmonary arteries: The extent of the contrast opacification of the pulmonary arterial tree limits e valuation of segmental pulmonary emboli. No definite central pulmonary embolus or secondary changes of right heart dysfunction are evident. Heart and Aorta: Normal appearing. Mediastinum:Normal appearing. No enlarged lymph nodes. Lungs:There are areas of subsegmental volume loss in the right lower lobe and right upper lobe. Pleural space: Clear. Upper Abdomen: Prominent fatty liver. Osseous Structures: No acute osseous abnormality. Soft tissues:No abnormality. Other findings:None. Impression: 1. Limitations to the examination due to timing of the contrast bolus. No definite central pulmonary embolus is evident. 2. Nonspecific subsegmental volume loss in the right upper and right lower lobe. 3. Prominent fatty liver
[2020-01-13 20:18] LABS: Bilirubin Negative (Negative); Blood, Urine Negative (Negative); Clarity Clear (Clear); Glucose, Urine (Dipstick) Normal (Negative); Ketone, Urine Negative (Negative); Leukocyte Negative Leu/uL (Negative); Nitrite Negative (Negative); Protein, Urine (Dipstick) Negative (Neg-Trace); Urobilinogen Normal mg/dL (Less than 2); pH, Urine 5.5 (5.0-9.0)
[2020-01-13 20:20] LABS: Pregnancy Test - Urine (BHCG) Negative (Negative); Pregu Control Background? CLEAR/WHITE (CLR/WHITE); Pregu Control Bar Appear? YES (CONTROL BAR)
[2020-01-13] MEDS ORDERED: Morphine 2 MG/ML VIAL ONE (20:30)
--- NOTE | 2020-01-13 21:46 | PDOC.FPRHP ---
- History of Present Illness Chief Complaint: Chest pain History of Present Illness: Patient is a 49 year old female with a PMHx of CAD, HLD and GERD who presents to the ED with complaints of left sided chest pain since 1630 this afternoon. Patient says she was watching TV when clenching, stabbing chest pain suddenly st arted, rated 10/10, without radiation. Also experienced mild sweating, feeling flushed and SOB at that time. Denies nausea or abdominal pain. Took ASA at home. Pain now 6/10 after nitro 0.4mg and morphine 2mg. Mild SOB still present but sweating has resolved. Has a history of GERD but reports this feels different. Has not seen a physician in over 2 years due to loss of insurance. Previously underwent stress test in 2011 that showed concerns for anterior wall ischemia. Underwent cath that showed stenosis but no intervention taken. Repeat stress in 2013 was normal. Cath completed due to continued chest pain that was normal. Echo completed 2016 showed diastolic dysfunction. Previously followed by Dr. Perez, broadcast meteorologist, but has not been seen in 2-3 years. ED Course: Vitals stable. Initially hypertensive with systolic 140s but now in 100s. Afebrile. Received nitro 0.4 x 1 and morphine 2 mg with improvement of pain. - Allergies/Adverse Reactions Allergies Allergy/AdvReac Type Severity Reaction Status Date / Time cephalexin [From Keflex] Allergy Verified 01/13/20 23:49 - Home Medications Medication Instructions Recorded Confirmed Type Aspirin [Aspirin EC] 81 mg PO DAILY #30 tablet. 01/14/20 Rx Esomeprazole Magnesium [Nexium] 20 mg PO DAILY 01/14/20 01/14/20 History Nitroglycerin [Nitrostat] 0.4 mg SL Q5MIN PRN #10 tab 01/14/20 Rx - History PMHx: CAD, HLD, nephrolithiasis, hepatosteatosis, GERD PSHx: BTL, T&A, kidney stone removal FHx: Mother - heart transplant, Father - CAD Social: Smokes 1ppd for past 15 years. Rare ETOH use. No hx of drug use. - Review of Systems General: denies: fever/chills, night sweats Eyes: denies: vision changes ENT: denies: nasal congestion, rhinorrhea Respiratory: reports: shortness of breath (mild). denies: cough, congestion Cardiovascular: reports: chest pain (improved). denies: palpitation, edema Gastrointestinal: denies: nausea, vomiting, abdominal pain Genitourinary: denies: dysuria, polyuria Skin: denies: rashes, lesions Musculoskeletal: denies: pain, swelling Neurological: denies: numbness, weakness Psychological: denies: anxiety, depression - Vital signs BP: [107/67] HR: [92] RR: [19] Tmax: [97.9F] Pox: [96]% on [RA] Wt: [99.79kg] - Physical Exam Constitutional: NAD, awake, alert and oriented -Constitutional: Morbidly obese HEENT: normocephalic and atraumatic, no scleral icterus, MMM Neck: supple, trachea midline Chest: no-tender to palpation, no lesions Heart: RRR, normal S1/S2, no murmurs/rubs/gallops, no edema Lungs: CTAB, no respiratory distress Abdomen: soft, non-tender, bowel sounds present Musculoskeletal: normal structure, ROM grossly normal Neurological: no focal deficit, normal sensation Skin: no rash/lesions, no jaundice Heme/Lymphatic: no unusual bruising or bleeding Psychiatric: normal mood and affect FMR H&P: Results - Labs Result Diagrams: 01/14/20 04:31 01/14/20 04:31 Lab results: WBC 11.1 thou/uL (4.8-10.8) H 01/13/20 18:43 Hgb 14.5 g/dL (12.0-16.0) 01/13/20 18:43 Hct 42.1 % (36.0-47.0) 01/13/20 18:43 MCV 92.5 fL (78.0-98.0) 01/13/20 18:43 Plt Count 302 thou/uL (130-400) 01/13/20 18:43 Neutrophils % 75.6 % (42.0-75.0) H 01/13/20 18:43 Sodium 136 mmol/L (136-145) 01/13/20 18:43 Potassium 3.9 mmol/L (3.5-5.1) 01/13/20 18:43 Chloride 104 mmol/L (98-107) 01/13/20 18:43 Carbon Dioxide 25 mmol/L (22-29) 01/13/20 18:43 BUN 13 mg/dL (7.0-18.7) 01/13/20 18:43 Creatinine 0.76 mg/dL (0.6-1.1) 01/13/20 18:43 Glucose 99 mg/dL (70-105) 01/13/20 18:43 Calcium 9.5 mg/dL (7.8-10.44) 01/13/20 18:43 Total Bilirubin 0.3 mg/dL (0.2-1.2) 01/13/20 18:43 AST 14 U/L (5-34) 01/13/20 18:43 ALT 14 U/L (8-55) 01/13/20 18:43 Alkaline Phosphatase 87 U/L (40-110) 01/13/20 18:43 Creatine Kinase 72 U/L (29-168) 01/13/20 18:43 Serum Total Protein 7.4 g/dL (6.0-8.3) 01/13/20 18:43 Albumin 4.2 g/dL (3.5-5.0) 01/13/20 18:43 Lipase 23 U/L (8-78) 01/13/20 18:43 Urine Ketones Negative mg/dL (Negative) 01/13/20 19:59 Urine Blood Negative (Negative) 01/13/20 19:59 Urine Nitrite Negative (Negative) 01/13/20 19:59 Ur Leukocyte Esterase Negative Luis/uL (Negative) 01/13/20 19:59 - EKG Interpretation EKG: Sinus tachy at 111, T wave flattening unchanged from previous EKG FMR H&P: A/P - Plan Typical chest pain Hx of abnormal stress test and cath with stenosis in 2011, repeat normal in 2013. Previous broadcast meteorologist, Dr. Perez. Chest pain improved after nitro and morphine. EKG showed T wave flattening, unchanged. Trop 0.016. D-dimer elevated at 0.87, CTA Chest negative for PE. -Admit to tele obs with continuous monitoring -Trend trop x 3 -Risk stratification labs (lipid panel, TSH, A1C) -EKG PRN -NPO at midnight for stress test in am HLD -Not on medication -Lipid panel in am Hepatosteatosis -Noted on imaging -LFTs WNL Hx nephrolithiasis -UA normal -Denies symptoms GERD -Not on medication Tobacco abuse -Ticotine patch ordered -Smoking cessation discussed. Patient not interested in quitting at this time. PCP: None in past 2 years, [facility] Call Code: FULL DVT Ppx: SCDs, Kirstin score 1 Dispo: Admit to tele obs for ACS r/u, expected LOS < 48 hours FMR H&P: Upper Level - Plan Date/Time: 01/13/202145 I, Lolly Jose, have evaluated this patient and agree with findings/plan as outlined by general intern resident. Pertinent changes/additions are listed here. 49 yo F presents for left sided chest pain at 16:30 this afternoon while at rest watching tv. Pain has persisted, was not affected by nitro. Morphine did help t he pain, currently 09/02. Associated with SOB, diaphoresis. She denies any pain like this for years. No known cause. PMH reviewed. 2011 she had an abnormal stress test, followed by a cath with 30- 50% stenosis of ramus. 2013 was also admitted for chest pain with a normal stress test, echo EF 55-60%, then a cath for persistent chest pain that was negative. 2016 had echo with diastolic dysfunction. She lost insurance and has not had any medical care for >2 years. She recently started taking nexium for reflux though this pain is much different. PE: Gen: NAD Heart: RRR, no murmurs or extra sounds. Pain with palpation of chest wall. Lungs: CTAB, no wheezing. No increased work of breathing Abd: soft, nontender Ext: trace pitting edema bilaterally Psych: AOx3 Typical chest pain, r/o ACS - Hx of GERD but less likely causing pain now. Consider costochonodritis - Initial troponin 0.016, continue to trend - EKG with T wave inversions V2-6, rate 111 - Labs for risk stratification - Heart score 5 - Plan for stress test in am HLD - Untreated, check labs and will likely need to be restarted on statin PCP: no care for >2 years Attending: Radha Diet: TERRANCE @ [place] Dispo: admit to telemetry for observation, expected LOS <48h Addendum - Attending - Attending Attestation Date/Time: 01/14/201951 I personally evaluated the patient and discussed the management with the team on day of admission. I agree with the History, Examination, Assessment and Plan documented above with any addition or exceptions noted below. Sleeping comfortably when I entered the room. Chest wall TTP. Plan as above.
[2020-01-13] MEDS ORDERED: Nitroglycerin 0.4 MG TAB (25 Tab Bottle) SL PRN (22:22)
[2020-01-13] MEDS ORDERED: Ondansetron PF 4 MG/2 ML Vial IVP PRN (22:38)
[2020-01-13] MEDS ORDERED: Ondansetron ODT 4 MG TAB PO PRN (22:38)
[2020-01-13 23:37] LABS: Troponin I Less than 0.010 ng/mL (< 0.028)
[2020-01-14 00:48] VITALS: BMI 38.7
[2020-01-14] MEDS: Nicotine 14 MG PATCH TD SCH ×2 (00:53→23:40)
[2020-01-14 02:42] LABS: Troponin I Less than 0.010 ng/mL (< 0.028)
[2020-01-14 04:55] LABS: #Eosinphils 0.2 thou/uL (0.0-0.7); #Lymphocytes 1.7 thou/uL (1.20-3.40); #Monocytes 0.9 thou/uL (0.11-0.59); #Neutrophils 6.8 thou/uL (1.40-6.50); %Basophils 0.4 % (0.0-1.0); %Eosinophils 1.9 % (0.0-10.0); %Lymphocytes 17.3 % (21.0-51.0); %Neutrophils 71.3 % (42.0-75.0); Hemoglobin 13.8 g/dL (12.0-16.0); Mean Corpuscular HGB CONC 29.2 g/dL (32.0-36.0); Mean Corpuscular Hemoglobin 28.9 pg (27.0-31.0); Mean Corpuscular Volume 99.2 fL (78.0-98.0); Mean Platelet Volume 7.9 fL (7.4-10.4); Platelet Count 251 thou/uL (130-400); RBC Distribution Width 12.4 % (11.5-14.5); Red Blood Cell (RBC) Count 4.77 mill/uL (4.20-5.40); White Blood Cell (WBC) Count 9.6 thou/uL (4.8-10.8)
[2020-01-14 05:07] LABS: Anion Gap 10 mmol/L (10-20); BUN (Urea Nitrogen) 13 mg/dL (7.0-18.7); Calc. Creatinine Clearance 166 mL/min (70-130); Calcium 8.7 mg/dL (7.8-10.44); Carbon Dioxide 22 mmol/L (22-29); Cardiac Risk 4.2 (Less than 4.5); Chloride 105 mmol/L (98-107); Cholesterol 182 mg/dl (< 200 Desired); Estimated GFR-MDRD Greater than 90; Glucose 88 mg/dL (70-105); HDL Cholesterol 43 mg/dL (>60 Neg Risk); LDL Cholesterol, Calculated 118 mg/dL; Sodium 133 mmol/L (136-145); Triglycerides 103 mg/dL (Less than 150)
--- NOTE | 2020-01-14 06:07 | PDOC.FM ---
- Subjective Subjective: Pt states still having CP this morning. Was not able to sleep well last time bc "couldn't get comfortable". Pain worse with deep breath. Some mild pain in L arm associated. In discussing history, she states she had thyroid disorder in the past, one cath that showed minimal blockage and had previously been on atorvastatin. Smokes 1ppd, has tried quitting in the past but unsuccessful. Feels she smokes because of stress. - Objective Vital Signs & Weight: Vital Signs (12 hours) Temp Pulse Resp BP Pulse Ox 01/14/20 04:50 98 F 67 18 98/53 L 95 01/13/20 23:51 98 F 77 18 85/53 L 95 Weight Weight 102.33 kg Result Diagrams: 01/14/20 04:31 01/14/20 04:31 Phys Exam - Physical Examination Constitutional: NAD HEENT: sclera anicteric dry MM Neck: supple, full ROM no thyromegaly or thyroid nodules Respiratory: no wheezing, clear to auscultation bilateral Cardiovascular: RRR, no significant murmur tender to palpation over chest wall, pain elicited with deep breath Gastrointestinal: soft, non-tender, no distention Musculoskeletal: no edema, pulses present Neurological: non-focal, normal sensation Psychiatric: normal affect, A&O x 3 Skin: no rash, cap refill <2 seconds Dx/Plan - Plan Plan: #Typical chest pain -ACS vs costochondritis vs GERD -trop neg x3, CXR normal, CTA neg for PE -hx of cath, no stent placed -PE: tender to palpation of chest wall -pending stress test today HLD -Not on medication -Chol 182, LDL 118, HDL 43 -ASCVD 4.4% Hepatosteatosis -Noted on imaging -LFTs WNL Hx nephrolithiasis -UA normal -Denies symptoms GERD -Not on medication Tobacco abuse -encourage cessation Hypothryoidism -TSH elevated, pending free T4. Distant hx of thyroid disorder, can f/u outpatient PCP: None in past 2 years, [place] Call Code: FULL DVT Ppx: SCDs Dispo: Admit to tele obs, pending stress test this am, expected LOS < 48 hours
[2020-01-14] MEDS: Aspirin 325 mg Enteric Coated Tablet PO SCH (07:32)
[2020-01-14] MEDS ORDERED: ADENOSINE 60 MG/20 ML VIAL ONE (08:50)
[2020-01-14] MEDS ORDERED: FLU VACC QS2020-21(6MOS UP)/PF 60 MCG/0.5 ML SYRINGE IM ONE (09:00)
[2020-01-14] MEDS: Acetaminophen 325 MG TAB PO PRN ×2 (12:03→20:49)
--- NOTE | 2020-01-15 05:49 | PDOC.FM ---
- Subjective Subjective: Pt resting comfortably. States she has minimal underlying constant chest pressure. Tolerated diet yesterday after procedure. No N/V, diarrhea, SOB. - Objective Vital Signs & Weight: Vital Signs (12 hours) Temp Pulse Resp BP Pulse Ox 01/15/20 04:35 98.3 F 70 18 116/56 L 95 01/14/20 20:40 98.0 F 76 19 97/57 L 95 Weight Weight 104.598 kg I&O: 01/13/20 01/14/20 01/15/20 06:59 06:59 06:59 Intake Total 1040 Output Total 550 Balance 490 Result Diagrams: 01/14/20 04:31 01/14/20 04:31 Phys Exam - Physical Examination Constitutional: NAD HEENT: sclera anicteric dry MM Neck: supple, full ROM Respiratory: no wheezing, clear to auscultation bilateral Cardiovascular: RRR, no significant murmur chest wall tender to palpation Gastrointestinal: soft, non-tender, no distention Musculoskeletal: no edema, pulses present Neurological: non-focal, normal sensation Psychiatric: normal affect, A&O x 3 Skin: no rash, cap refill <2 seconds Dx/Plan - Plan Plan: #Typical chest pain -ACS vs costochondritis vs GERD -trop neg x3, CXR normal, CTA neg for PE -hx of cath, no stent placed -s/p day 1 of NM stress test, pending second part today -if abnormal, will consult cards, Dr Perez HLD -Not on medication -Chol 182, LDL 118, HDL 43 -ASCVD 4.4% Hepatosteatosis -Noted on imaging -LFTs WNL Hx nephrolithiasis -UA normal -Denies symptoms GERD -Not on medication Tobacco abuse -encourage cessation Subclnical Hypothryoidism -TSH elevated, T4 normal. Distant hx of thyroid disorder, -can f/u outpatient PCP: None in past 2 years, [place] Call Code: FULL DVT Ppx: SCDs Dispo: Admit to tele obs, pending 2nd part of stress test this am, expected LOS < 48 hours
[2020-01-15] MEDS ORDERED: Nicotine 14 MG PATCH TD PRN (08:31)
[2020-01-15] MEDS: Aspirin 325 mg Enteric Coated Tablet PO SCH (09:21)
--- NOTE | 2020-01-15 09:42 | NM ---
EXAM: Nuclear medicine cardiac perfusion examination with ejection fraction HISTORY: Chest pain TECHNIQUE: Rest images: 31.5 mCi technetium 99m sestamibi Stress images: 29.9 mCi of technetium 9M sestamibi; Adenosine COMPARISON: None FINDINGS: Tomographic images: There is a small fixed perfusion defect of the anteroseptal wall. There may be a small amount of reversibility at the apex. Gated images: Normal wall motion and ejection fraction of 55%. EDV: 92 mL LHR: 0.4 TID: 1.1 IMPRESSION: Possible apical ischemia
[2020-01-15 13:18] LABS: SARS-CoV-2 MS2 Positive; SARS-CoV-2 N Gene Negative; SARS-CoV-2 S Gene Negative; SARS-CoV-2 by NAA Not Detected (NotDetected); SARS-CoV-2 orf1ab Negative
[2020-01-15] MEDS ORDERED: Ketorolac Tromethamine 30 MG/ML VIAL IVP SCH (14:30)
--- NOTE | 2020-01-15 14:36 | CON ---
DATE OF CONSULTATION: HISTORY OF PRESENT ILLNESS: The patient is a 49-year-old woman who presents for evaluation of left-sided chest discomfort. The patient has a previous history of coronary artery disease. She was seen initially in 2011, and underwent a cardiac evaluation including a cardiac catheterization. She was found to have normal left ventricular ejection fraction 50% to 55%. The LAD had no significant disease. There was a ramus vessel with a 50% lesion. The right coronary artery had 20% to 30% lesion. The patient underwent an FFR, which revealed no significant disease in the ramus. The patient re-presented in 2013 with recurrent chest pain. She underwent a Cardiolite stress test,which revealed a fixed anterior septal defect, but no ischemia. She did subsequently undergo a repeat cardiac catheterization. She was found to have no significant coronary artery disease. The patient states she was in her usual state of health when she started developing left-sided chest discomfort. The discomfort has been a persistent discomfort. The patient states it was associated with shortness of breath. The discomfort is clearly worse when she takes a deep breath. The patient received nitroglycerin without improvement in her pain, but this has been less severe with morphine. The patient denies having any PND or orthopnea. The patient does have multiple cardiac risk factors including continued tobacco abuse. PAST MEDICAL HISTORY: 1. Coronary artery disease. 2. Dyslipidemia. PAST SURGICAL HISTORY: Tonsillectomy, tubal ligation, and surgery for kidney stones. SOCIAL HISTORY: She smokes one pack per day. MEDICATIONS: On admission, none. FAMILY HISTORY: Strong family history of coronary artery disease. REVIEW OF SYSTEMS: Ten-point system otherwise unremarkable. PHYSICAL EXAMINATION: GENERAL: Well-developed woman, in no acute distress. VITAL SIGNS: Blood pressure 112/66. NECK: No jugular venous distention. LUNGS: Clear to auscultation. HEART: Regular rate and rhythm. Normal S1, S2. No murmurs. ABDOMEN: Nondistended. EXTREMITIES: Showed no edema. VASCULAR: Radial pulses 2+. LABORATORY DATA: White blood cell count 9.6, hemoglobin 13.8platelets are 251. Sodium is 133, potassium 4.0, chloride 105, bicarbonate 22, BUN 13, creatinine 0.67. Troponin less than 0.01. EKG normal sinus rhythm with a nonspecific ST abnormality. Nuclear stress test revealed normal left ventricular ejection fraction of 55%. Small fixed anteroseptal defect and a small amount of reversibility at the apex. IMPRESSION: 1. Chest pain, atypical, probably pleurisy. 2. History of coronary artery disease. 3. Abnormal Cardiolite stress test. 4. Dyslipidemia. 5. Tobacco abuse. This patient presents with chest pain suggestive of pleurisy. The cardiac enzymes revealed no evidence of myocardial infarction. There are no acute ST-T wave changes. From a Cardiac standpoint, I would recommend she be started on lipid-lowering medication. We will try to treat the patient with Toradol and Motrin and if the patient's symptoms persist, she may undergo further evaluation. We will follow this patient with you through her hospitalization. Job ID: [id number] [facility]ENTER[facility]azala
[2020-01-15] MEDS: Ibuprofen 600 MG TAB PO SCH (16:46)
[2020-01-15] MEDS ORDERED: Atorvastatin Calcium 40 MG TAB PO SCH (21:00)
[2020-01-15] MEDS ORDERED: Ibuprofen 600 MG TAB PO SCH (22:30)
--- NOTE | 2020-01-16 05:33 | PDOC.FM ---
- Subjective Subjective: Pt states she still has underlying chest pain despite being given NSAIDs yesterday. Per patient, Dr Perez saw her this morning and stated that he did not feel she needed a cath today but if she wanted one, he would do it. She was waiting on her to come to hospital before she makes her decision. Answered questions. Denies N/V, SOB, DHILL[place], vision changes. - Objective Vital Signs & Weight: Vital Signs (12 hours) Temp Pulse Resp BP Pulse Ox 01/16/20 03:49 97.6 F 78 12 105/61 95 01/16/20 00:00 97.7 F 72 16 105/70 98 01/15/20 20:00 97.7 F 71 18 118/77 95 Weight Weight 104.598 kg I&O: 01/14/20 01/15/20 01/16/20 06:59 06:59 06:59 Intake Total 1160 600 Output Total 1050 Balance 110 600 Result Diagrams: 01/14/20 04:31 01/14/20 04:31 Phys Exam - Physical Examination Constitutional: NAD HEENT: moist MMs, sclera anicteric Neck: supple, full ROM Respiratory: no wheezing, clear to auscultation bilateral Cardiovascular: RRR, no significant murmur Gastrointestinal: soft, non-tender, no distention Musculoskeletal: no edema, pulses present Neurological: non-focal, normal sensation Psychiatric: normal affect, A&O x 3 Skin: no rash, cap refill <2 seconds Dx/Plan - Plan Plan: #Typical chest pain -ACS vs costochondritis vs pleurisy -trop neg x3, CXR normal, CTA neg for PE -2 day NM stress abnormal: fixed anteroseptal defect (seen on previous) and possible reversible defect at apex -cardiology, Dr Nicole: CP likely pleurisy, start toradol and motrin, if pain continues can be re-evaluated. Start statin -Dr. Perez this morning: possible cath, will await patient's decision. -If she decides no cath, will treat medically and discharge today to f/u outpatient with PCP and geological manager HLD -Not on medication -Chol 182, LDL 118, HDL 43 -ASCVD 4.4% Hepatosteatosis -Noted on imaging -LFTs WNL Hx nephrolithiasis -UA normal -Denies symptoms GERD -Not on medication Tobacco abuse -encourage cessation Subclnical Hypothryoidism -TSH elevated, T4 normal. Distant hx of thyroid disorder, -can f/u outpatient PCP: None in past 2 years, [facility] Call Code: FULL DVT Ppx: SCDs Dispo: Admit to tele obs, pending patient's decision on cath, expected LOS < 48 hours
[2020-01-16] MEDS: Aspirin 325 mg Enteric Coated Tablet PO SCH (08:22)
[2020-01-16] MEDS: Ibuprofen 600 MG TAB PO SCH ×2 (09:45→13:17)
[2020-01-16 12:16] VITALS: BP 106/66; TEMP 98.3
--- NOTE | 2020-01-16 12:54 | PRG ---
DATE OF SERVICE: 01/16/2020 SUBJECTIVE: Ms. Jenkins is doing well. No current complaints. As per Dr. Nciole's note, the patient does state her chest pain is dull and worse with deep breath. Her recent stress study did show a questionable area of ischemia noted at the apex only with normal LVEF. OBJECTIVE: VITAL SIGNS: Blood pressure 106/66, pulse 77, and temperature 98.3. LUNGS: Clear to auscultation. HEART: Regular rate and rhythm. ABDOMEN: Soft, nontender, and nondistended. EXTREMITIES: No edema. IMPRESSION: 1. Chest pain. 2. Tobacco abuse. RECOMMENDATIONS: Ms. Jenkins's symptoms are not felt to be typical of angina. Her symptoms are worse with deep breath. I discussed medical therapy versus coronary angiography. I discussed the same separately with her . After discussing risks and benefits for above, she decided to proceed with more conservative approach. Would recommend nonsteroidal therapy in addition to PPI. Plan is to follow up Ms. Jenkins in the next 1 to 2 weeks. Also discussed tobacco cessation. Job ID: [id number]
--- NOTE | 2020-01-18 13:58 | DIS ---
DATE OF ADMISSION: 01/13/2020 DATE OF DISCHARGE: 01/16/2020 RESIDENT: Cecilia Rey MD, PGY-1 ADMITTING ATTENDING: Zen Gonzalez MD DISCHARGE ATTENDING: Zen Gonzalez MD. CONSULTS: Cardiology, Dr. Nicole. PROCEDURE: Nuclear medicine stress test on 01/13/2020 and 01/14/2020. Results; Small fixed perfusion defect of anteroseptal wall. Possible small amount of reversibility at the apex. Normal wall motion and ejection fraction of 55%. PRIMARY DIAGNOSES: Typical chest pain. SECONDARY DIAGNOSES: 1. Hyperlipidemia. 2. Hepatosteatosis. 3. Nephrolithiasis. 4. GERD. 5. Tobacco abuse. 6. Subclinical hypothyroidism. DISCHARGE MEDICATIONS: 1. Aspirin 81 mg daily. 2. Atorvastatin 40 mg daily. 3. Nexium 20 mg daily. 4. Nitrostat sublingual as needed. HISTORY OF PRESENT ILLNESS: 49-year-old female with history of coronary artery disease, hyperlipidemia, and GERD who presented to the ED with left-sided chest pain. Pain occurred at rest, stabbing pain, rated 10 out of 10, no radiation, associated with sweating and nausea. Took aspirin at home. Had not seen doctor or taken medicines "in a while". In the ED was found to have elevated D-dimer. CTA was done, which showed no evidence of PE. She had a history of stress test and cardiac cath in the 2011 and 2013. No stent placed. An echo done in 2016 showed diastolic dysfunction. Has seen Dr. Perez, cardiology, in the past but has not seen him in several years. While in hospital, underwent nuclear medicine stress test, results, as above. Was seen by Dr. Perez on 01/15 and discussed with patient option for cardiac cath. [place] that the patient's pain was not due to angina, more likely musculoskeletal or pleurisy. Patient and decided to proceed with conservative approach of medical management. Plan is for patient to follow up with correctional program officer in 1 to 2 weeks. Advised tobacco cessation. DISPOSITION: Stable. DISCHARGE INSTRUCTIONS: Location: Home. Diet: Heart health. Activity: As tolerated. Followup: PCP, [facility] in 1week and followup with Dr. Perez cardiology in 1 to 2 weeks. Job ID: [id number] [facility]
== END 2020-01-16 13:20 | disposition home or self-care (01) | DRG 313 ==
LOC: ERS 18:22 → OBSVTOIN 22:40 → 2SW 22:40 → 2SE 01-15 14:14
PROVIDERS: ADMIT Emergency Medicine; ATTEND Emergency Medicine
DX: R07.89 Other chest pain (principal); R09.1 Pleurisy; E78.5 Hyperlipidemia, unspecified; Z20.828 Contact with and (suspected) exposure to other viral communicable diseases; K21.9 Gastro-esophageal reflux disease without esophagitis; F17.210 Nicotine dependence, cigarettes, uncomplicated; E03.9 Hypothyroidism, unspecified; I25.10 Atherosclerotic heart disease of native coronary artery without angina pectoris; E66.01 Morbid (severe) obesity due to excess calories; K76.89 Other specified diseases of liver; E78.00 Pure hypercholesterolemia, unspecified; Z88.1 Allergy status to other antibiotic agents; Z79.899 Other long term (current) drug therapy; Z79.82 Long term (current) use of aspirin; Z68.39 Body mass index [BMI] 39.0-39.9, adult; Z87.442 Personal history of urinary calculi; Z88.8 Allergy status to other drugs, medicaments and biological substances; Z23 Encounter for immunization
CPT/HCPCS: 36415; 71045; 71275; 78452; 80048; 80053; 80061; 81003; 81025; 82550; 83036; 83690; 84439; 84443; 84484; 85025; 85379; 87635; 90471; 90662; 93005; 93017; 96374; A9500; G0008; G0378; J0153; J1885; J2270; Q9967; U0003

== ENCOUNTER 2020-05-19 19:15 | Emergency (ER) | payer SELFPAY ==
[2020-05-19 20:41] LABS: Bacteria/HPF 3+ HPF (None Seen); Bilirubin Negative (Negative); Blood, Urine 3+ (Negative); Clarity Extra Turbid (Clear); Glucose, Urine (Dipstick) Normal (Negative); Ketone, Urine Negative (Negative); Leukocyte 500 Leu/uL (Negative); Nitrite 2+ (Negative); Protein, Urine (Dipstick) 200 mg/dL (Neg-Trace); RBC/HPF Greater than 50 HPF (0-3); Renal Epithelial 0-3 HPF (None Seen); Specific Gravity, Urine 1.015 (1.002-1.036); Squamous Epithelial None Seen HPF (0-3); Urobilinogen Normal mg/dL (Less than 2); WBC/HPF Greater than 50 HPF (0-3)
--- NOTE | 2020-05-19 22:47 | CT ---
CT OF THE ABDOMEN AND PELVIS WITHOUT IV CONTRAST INDICATION: Hematuria, UTI and concern for stone COMPARISON: Prior exam dated November 23, 2017 FINDINGS: The lack of IV contrast limits evaluation of the solid organs of the abdomen and pelvis. ABDOMEN: Lung bases: Clear Liver: Diffuse fatty liver. Focal fatty sparing near the gallbladder fossa Gallbladder: Normal appearing. Pancreas: Normal. Adrenal glands: Normal. Spleen: Normal. Kidneys and ureters: There is a 2 mm stone within the lower pole the right kidney. An additional 1 to 2 mm stone seen within the right mid kidney. There is a 7 mm stone within the inferior pole of the right kidney. There is a 3 mm stone within the upper pole left kidney. There is slight prominence of the right ureter with mild periureteral inflammatory stranding. No definite ureteral calculus is evident. No visible intraluminal stone is seen within the bladder. Vasculature: Normal. Lymph nodes:No lymphadenopathy. Free fluid in abdomen:No free fluid is evident. PELVIS: Small and large bowel: Normal Appendix:Normal Bladder: Normal. Rectal and perirectal soft tissues:Normal. Reproductive structures: Normal. Free fluid in pelvis: No free fluid is evident. Lymphadenopathy pelvis: No lymphadenopathy is evident. Osseous structures: No acute osseous abnormality. No destructive osteolytic or osteoblastic lesion i s identified. There is scattered degenerative and osteoarthritic changes. Soft tissues:Normal. IMPRESSION: 1. Bilateral nephrolithiasis. 2. Slight prominence of the right ureter with mild right periureteral inflammatory stranding. Finding s can be seen with sequela of a recently passed stone. An ascending urinary tract infection cannot be entirely excluded. 3. Fatty liver
== END 2020-05-19 23:28 | disposition home or self-care (01) ==
LOC: ERS 19:15
DX: N39.0 Urinary tract infection, site not specified (principal); E78.5 Hyperlipidemia, unspecified; E78.00 Pure hypercholesterolemia, unspecified; F17.210 Nicotine dependence, cigarettes, uncomplicated; Z79.82 Long term (current) use of aspirin; Z79.899 Other long term (current) drug therapy
CPT/HCPCS: 74176; 81003; 81015

== ENCOUNTER 2022-06-18 22:02 | Emergency (ER) | payer BC, SELFPAY ==
[2022-06-18 22:51] LABS: #Basophils 0.1 thou/uL (0.0-0.2); #Eosinphils 0.4 thou/uL (0.0-0.7); #Lymphocytes 1.7 thou/uL (1.20-3.40); #Monocytes 0.6 thou/uL (0.11-0.59); #Neutrophils 8.5 thou/uL (1.40-6.50); %Basophils 0.7 % (0.0-1.0); %Eosinophils 3.9 % (0.0-10.0); %Lymphocytes 15.1 % (21.0-51.0); %Monocytes 5.2 % (0.0-10.0); %Neutrophils 75.1 % (42.0-75.0); Hemoglobin 16.2 g/dL (12.0-16.0); Mean Corpuscular HGB CONC 34.7 g/dL (32.0-36.0); Mean Corpuscular Hemoglobin 33.1 pg (27.0-31.0); Mean Corpuscular Volume 95.3 fl (78.0-98.0); Mean Platelet Volume 7.7 fL (7.4-10.4); Platelet Count 300 10x3/uL (130-400); RBC Distribution Width 12.4 % (11.5-14.5); Red Blood Cell (RBC) Count 4.89 mill/uL (4.20-5.40); White Blood Cell (WBC) Count 11.4 10x3/uL (4.8-10.8)
[2022-06-18 23:22] LABS: ALT (SGPT) 14 U/L (8-55); AST (SGOT) 13 U/L (5-34); Albumin 4.2 g/dL (3.5-5.0); Alkaline Phosphatase 89 U/L (40-110); Anion Gap 15 mmol/L (10-20); BUN (Urea Nitrogen) 14 mg/dL (7.0-18.7); Bilirubin, Total 0.7 mg/dL (0.2-1.2); Calc. Creatinine Clearance 0 mL/min (70-130); Calcium 9.6 mg/dL (7.8-10.44); Carbon Dioxide 21 mmol/L (22-29); Chloride 107 mmol/L (98-107); Estimated GFR 91; Globulin 3.7 g/dL (2.4-3.5); Glucose 79 mg/dL (70-105); Potassium 3.6 mmol/L (3.5-5.1); Protein, Total 7.9 g/dL (6.0-8.3); Sodium 139 mmol/L (136-145)
[2022-06-19] MEDS ORDERED: Ketorolac Tromethamine 30 MG/ML VIAL ONE (00:50)
== END 2022-06-19 01:58 | disposition home or self-care (01) ==
LOC: ERS 22:02
DX: R51.9 Headache, unspecified (principal); D72.829 Elevated white blood cell count, unspecified; E78.00 Pure hypercholesterolemia, unspecified; I25.10 Atherosclerotic heart disease of native coronary artery without angina pectoris; F17.210 Nicotine dependence, cigarettes, uncomplicated
CPT/HCPCS: 36415; 70450; 80053; 85025; 96374; J1885

== ENCOUNTER 2023-08-03 12:57 | Emergency (ER) | payer SELFPAY ==
[2023-08-03] MEDS ORDERED: Ketorolac Tromethamine 30 MG (1 mL) VIAL ONE (14:11)
[2023-08-03] MEDS ORDERED: Orphenadrine Citrate 60 MG/2 ML VIAL ONE (14:14)
[2023-08-03 14:48] LABS: Bilirubin Negative (Negative); Blood, Urine Large (Negative); Glucose, Urine (Dipstick) Negative (Negative); Ketone, Urine Negative (Negative); Leukocyte Large (Negative); Nitrite Negative (Negative); Protein, Urine (Dipstick) 30 mg/dL (Neg-Trace); Urobilinogen 0.2 mg/dL (Less than 2)
[2023-08-03 14:50] LABS: Clarity Hazy (Clear)
[2023-08-03 14:58] LABS: Bacteria/HPF 2+ HPF (None Seen); CAUTI Indications for Culture Pelvic or flank pain
[2023-08-03 14:59] LABS: Urine Culture Reflex Yes Yes
== END 2023-08-03 15:55 | disposition home or self-care (01) ==
LOC: ERS 12:57
DX: S39.012A Strain of muscle, fascia and tendon of lower back, initial encounter (principal); M54.42 Lumbago with sciatica, left side; N39.0 Urinary tract infection, site not specified; I25.10 Atherosclerotic heart disease of native coronary artery without angina pectoris; F17.210 Nicotine dependence, cigarettes, uncomplicated; X50.1XXA Overexertion from prolonged static or awkward postures, initial encounter; Y93.89 Activity, other specified; Y92.69 Other specified industrial and construction area as the place of occurrence of the external cause
CPT/HCPCS: 81001; 87086; 96372; 99283; J1885; J2360